=== PATIENT | female | born 1950 | race Caucasian/White ===

== ENCOUNTER → 2016-10-21 | Outpatient (CLI) | payer MEDICARE ==
[~2016-10-21] MED LIST: OXYC-360 PO; PHEN12.5 PO
[2016-10-21 13:05] LABS: HEMATOCRIT 40.5 % (35.0-46.0); MEAN CELL VOLUME 88.8 FL (80.0-100.0); MEAN CORPUSCULAR HEMOGLOBIN 29.2 PG (27.0-34.0); MEAN CORPUSCULAR HGB CONC 32.9 % (32.0-36.0); PLATELET COUNT 279 TH/MM3 (150-450); RED BLOOD COUNT 4.56 MIL/MM3 (4.00-5.30); RED CELL DISTRIBUTION WIDTH 14.1 % (11.6-17.2); REVIEW FLAG FINAL; WHITE BLOOD COUNT 7.8 TH/MM3 (4.0-11.0)
[2016-10-21 13:41] LABS: ANION GAP 6 MEQ/L (5-15); AST (GOT) 18 U/L (15-37); BICARBONATE 29.2 MEQ/L (21.0-32.0); BLOOD UREA NITROGEN 10 MG/DL (7-18); CHLORIDE 106 MEQ/L (98-107); GLOMERULAR FILTRATION RATE 63 ML/MIN (>89); GLUCOSE,FASTING 84 MG/DL (74-99); POTASSIUM 5.3 MEQ/L (3.5-5.1); SODIUM (NA) 141 MEQ/L (136-145)
[2016-10-21 13:42] LABS: ALT (GPT) 27 U/L (10-53)
[2016-10-21 13:44] LABS: ALKALINE PHOSPHATASE 93 U/L (45-117); HDL CHOLESTEROL 54.4 MG/DL (40.0-60.0); LDL CHOLESTEROL 112 MG/DL (0-99); TOTAL BILIRUBIN ADULT 0.6 MG/DL (0.2-1.0)
== END ==
LOC: PLAB 08:00
DX: R53.83 Other fatigue (principal); Z86.79 Personal history of other diseases of the circulatory system
CPT/HCPCS: 36415; 80053; 80061; 85027

== ENCOUNTER → 2016-11-24 | Outpatient (CLI) | payer MEDICARE | LOC: PLAB 11:39 | DX: E87.5 Hyperkalemia (principal) | CPT/HCPCS: 36415; 84132 ==